=== PATIENT | male | born 1980 | race Caucasian/White ===

== ENCOUNTER → 2020-12-18 09:55 | Outpatient (BNVA) | payer BC, SELFPAY | PROVIDERS: PCP Family Medicine; Visit Provider Physician Assistant ==

== ENCOUNTER 2022-03-12 11:36 | Outpatient (REF) | payer BC, SELFPAY ==
[2022-03-12 14:26] LABS: Alanine Aminotransferase 61 U/L (0-40); Albumin Level 4.5 g/dL (3.5-5.0); Alkaline Phosphatase 59 U/L (39-117); Anion Gap 12 (12-20); Aspartate Amino Transferase 30 U/L (5-37); Bilirubin Total 0.6 mg/dL (0.0-1.0); Blood Urea Nitrogen 12 mg/dL (9-16); Calcium 9.2 mg/dL (8.4-10.2); Carbon Dioxide 26 mmol/L (22-29); Chloride 103 mmol/L (96-108); Cholesterol 220 mg/dL; Estimated Glomerular Filt Rate > 60; Glucose Fasting 119 mg/dL (60-99); HDL Cholesterol 33 mg/dL; LDL Cholesterol Calculated 151 mg/dl; Potassium 4.2 mmol/L (3.3-5.1); Sodium 137 mmol/L (135-145); Total Protein 7.4 g/dL (6.5-8.0); Triglycerides 183 mg/dL
[2022-03-12 14:27] LABS: Prostate Specific Antigen Scr 0.19 ng/mL (<0.05-4.0); TSH reflex Free T4 1.16 uIU/mL (0.32-4.0)
[2022-03-12 14:53] LABS: Creatinine Urine 189.22 mg/dL; Microalbum/Creatinine Ratio Ur 7.9 ug/mg cr
== END 2022-03-12 11:37 | disposition home or self-care (01) ==
LOC: HO.WFDLDS 11:36
PROVIDERS: Visit Provider Family Medicine
DX: Z00.00 Encounter for general adult medical examination without abnormal findings (principal); I10 Essential (primary) hypertension; Z12.5 Encounter for screening for malignant neoplasm of prostate
CPT/HCPCS: 36415; 80053; 80061; 82043; 84153; 84443

== ENCOUNTER 2023-01-21 10:51 | Outpatient (REF) | payer BC, SELFPAY ==
[2023-01-21 14:13] LABS: Alanine Aminotransferase 43 U/L (0-40); Albumin Level 4.6 g/dL (3.5-5.0); Alkaline Phosphatase 72 U/L (39-117); Anion Gap 16 (12-20); Aspartate Amino Transferase 23 U/L (5-37); Bilirubin Total 1.1 mg/dL (0.0-1.0); Blood Urea Nitrogen 14 mg/dL (9-16); Calcium 9.7 mg/dL (8.4-10.2); Carbon Dioxide 23 mmol/L (22-29); Chloride 104 mmol/L (96-108); Cholesterol 136 mg/dL; Estimated Glomerular Filt Rate > 60; Glucose Fasting 133 mg/dL (60-99); HDL Cholesterol 31 mg/dL; LDL Cholesterol Calculated 86 mg/dl; Potassium 4.3 mmol/L (3.3-5.1); Sodium 139 mmol/L (135-145); Total Protein 7.7 g/dL (6.5-8.0); Triglycerides 98 mg/dL
== END 2023-01-21 10:52 | disposition home or self-care (01) ==
LOC: HO.WFDLDS 10:51
PROVIDERS: Visit Provider Family Medicine
DX: E78.6 Lipoprotein deficiency (principal); R74.8 Abnormal levels of other serum enzymes; E78.5 Hyperlipidemia, unspecified
CPT/HCPCS: 36415; 80053; 80061

== ENCOUNTER 2023-02-25 07:57 | Outpatient (REF) | payer BC, SELFPAY ==
--- NOTE | ~2023-02-25 | US_ITS ---
EXAMINATION: US ABDOMEN LIMITED CLINICAL INFORMATION: Right lower quadrant pain; question hernia defect. COMPARISON: None available. TECHNIQUE: Real-time imaging of the right lower quadrant abdominal wall. Technically limited study secondary to bowel gas and body habitus. FINDINGS: The cutaneous, subcutaneous, muscular and fascial planes are unremarkable. No focal hernia defect is seen. There is no mass, fluid collection or lymphadenopathy. No foreign body is seen. There is hepatomegaly, with a longitudinal span of 25.5 cm. There is joint increase in hepatic echotexture. US/US abdomen limited IMPRESSION: 1. No focal abdominal wall finding is seen. No hernia defect is noted within the right lower quadrant abdominal wall. 2. There is hepatomegaly. 3. There is generalized increase in hepatic echotexture, consistent with fatty infiltration or hepatocellular disease. Please correlate clinically.
== END 2023-02-25 07:58 | disposition home or self-care (01) ==
LOC: HO.US 07:57
PROVIDERS: PCP Family Medicine; Visit Provider Family Medicine
DX: R10.9 Unspecified abdominal pain (principal)
CPT/HCPCS: 76705

== ENCOUNTER 2023-05-31 13:50 | Outpatient (REF) | payer BC, SELFPAY | END 2023-05-31 13:51 | disposition home or self-care (01) | LOC: HO.LAB 13:50 | PROVIDERS: PCP Family Medicine; Visit Provider Otolaryngology | DX: T78.1XXA Other adverse food reactions, not elsewhere classified, initial encounter (principal) | CPT/HCPCS: 36415; 82785; 86003 ==

== ENCOUNTER 2023-07-26 12:16 | Outpatient (REF) | payer BC, SELFPAY ==
[2023-07-26 15:24] LABS: Alanine Aminotransferase 59 U/L (0-40); Albumin Level 4.3 g/dL (3.5-5.0); Alkaline Phosphatase 65 U/L (39-117); Anion Gap 10 (12-20); Aspartate Amino Transferase 38 U/L (5-37); Bilirubin Total 0.8 mg/dL (0.0-1.0); Blood Urea Nitrogen 9 mg/dL (9-16); Calcium 9.2 mg/dL (8.4-10.2); Carbon Dioxide 26 mmol/L (22-29); Chloride 102 mmol/L (96-108); Cholesterol 139 mg/dL (<200); Estimated Glomerular Filt Rate > 60; Glucose Fasting 149 mg/dL (60-99); HDL Cholesterol 30 mg/dL (>40); LDL Cholesterol Calculated 86 mg/dL (<100); Potassium 3.9 mmol/L (3.3-5.1); Sodium 134 mmol/L (135-145); Total Protein 7.6 g/dL (6.5-8.0); Triglycerides 119 mg/dL (<150)
== END 2023-07-26 12:17 | disposition home or self-care (01) ==
LOC: HO.WFDLDS 12:16
PROVIDERS: Visit Provider Family Medicine
DX: Z00.00 Encounter for general adult medical examination without abnormal findings (principal); R74.8 Abnormal levels of other serum enzymes; E78.5 Hyperlipidemia, unspecified
CPT/HCPCS: 36415; 80053; 80061

== ENCOUNTER 2023-08-01 11:30 | Outpatient (AMB) | payer BC, SELFPAY ==
--- NOTE | 2023-08-01 11:33 | A.OFFPC_ITS ---
Vital Signs 08/01/23 11:34 Height 6 ft 1 in Weight 314 lb 8 oz BMI 41.5 BP 118/62 Blood Pressure Location Lt brachial Position Sitting Respiration 12 Pulse 78 Pulse Source Pulse Oximeter Pulse Oximetry (%) 97 Oxygen Delivery Method Room Air Intake Visit Reasons: f/u elevated liver enzymes, HLD, diabetes Intake Note: Patient is here to follow up on elevated liver enzymes and HLD, and his diabetes. Allergies house dust mite Allergy (Severe, Verified 08/01/23 11:40) Anaphylaxis mold Allergy (Severe, Verified 08/01/23 11:40) Anaphylaxis Seasonal Allergies Allergy (Severe, Verified 08/01/23 11:40) Anaphylaxis Tobacco use date assessed: 08/01/23 Dental Screening Dental Screen Date: 08/01/23 Did you have a dental visit in the last 12 months?: Yes Did you have a dental problem in the last 6 months where you did not have access to dental care?: No Was dental information given to patient?: Patient has dentist HPI f/u elevated liver enzymes, HLD, diabetes HPI Details 43 y/o male presents to f/u elevated fredo er enzymes, hyperlipidemia and diabetes. Labs were drawn 07/26/23. Reviewed labs with pt. Mildly low sodium at 134. AST 38 and ALT 59. Triglycerides 119. TC 139. LDL 86. HDL low at 30. He is on artovastatin 40mg. A1c today 08/01/23 8.8%. He is on metformin 850mg b.i.d. [facility] Medical History Sweating profusely GERD (gastroesophageal reflux disease) Generalized anxiety disorder Hypercholesterolemia Obesity, Class II, BMI 35-39.9 Essential hypertension Diabetes type 2, controlled Allergic rhinitis Surgical History H/O adenoidectomy H/O umbilical hernia repair No pertinent past surgical history Family History Father Diabetes Brother No problems noted. Brother No problems noted. Sister No problems noted. Sister No problems noted. Sister No problems noted. Mother No problems noted. Housing: House Alcohol intake: current Alcohol intake frequency: holidays/special occasions only Patient Tobacco Use Status: Never used Tobacco e-Cigarette/Vaping Use: Never Used Second Hand Smoke Exposure: No service: No Current occupational status: employed Current occupation: Clergy Cognitive needs: No Hearing needs: No Vision needs: No Questionnaire Thrive Questionnaire Date Thrive assessed: 01/19/22 HAIM-7 AMB Questionnaire HAIM-7 Date HAIM - 7 assessed: 01/19/22 Source: Developed by Drs. Pete Griffin, Rae Paredes, Anand Kingston and colleagues, with an educational joanie from [employer]. Review of Systems Const Denies chills, Denies fatigue, Denies fever(s), Denies headache(s) and Denies weakness ENT Denies dizziness and Denies headache(s) Card Denies chest pain, Denies lightheadedness, Denies dyspnea and Denies other (Palpitations) Resp Denies cough, Denies dyspnea, Denies wheezing and Denies other ( shortness of breath) Musc Denies numbness and Denies tingling Neuro Denies dizziness, Denies headache(s), Denies numbness, Denies tingling, Denies paresthesias and Denies weakness Psych Denies anxiety and Denies depression Endo Denies fatigue Aller/Immun Denies wheezing Physical exam (Primary Care) Vital Signs: Last Vital Signs Pulse 78 08/01/23 11:34 Resp 12 08/01/23 11:34 BP 118/62 08/01/23 11:34 Pulse Ox 97 08/01/23 11:34 Oxygen Delivery Method Room Air 08/01/23 11:34 BMI result Body Mass Index 41.5 Tobacco/Smoking Status: Tobacco use Status Tobacco use date assessed 08/01/23 08/01/23 11:40 Patient Tobacco Use Status Never used Tobacco 08/01/23 11:37 e-Cigarette/Vaping Use Never Used 08/01/23 11:37 Thrive Assessment: Date of Thrive Assessment Date Thrive assessed 01/19/22 08/01/23 11:37 Const General: no acute distress and well developed Nutritional Appearance: well nourished Orientation/consciousness: patient oriented x3 HENMT Head: Yes normocephalic and Yes atraumatic Eyes General: appearance normal, both eyes and all related structures Pupils: Equal, round and reactive pupils present EOM: EOMs intact bilaterally Resp Effort & Inspection: normal respiratory effort Auscultation: clear to auscultation bilaterally Cardio Rate: regular rate Rhythm: regular rhythm Heart sounds: S1 normal heart sound present, S2 normal heart sound present, no gallops, no murmurs and no rubs Neuro General: patient oriented x3 and gait normal Cranial nerves: Yes Equal, round and reactive pupils present Psych Affect: normal affect Results AMB Hemoglobin A1c AMB Hemoglobin A1c 8.8 % Last Edit by Natalie Albrecht CMA on 08/01/23 11:55 Results Reviewed Results Reviewed: Laboratory Last Values Hgb A1c (Clinic) 8.8 % (4.0-6.0) H 08/01/23 11:50 Assessment and Plan Assessment & Plan (1) Diabetes: Code(s): E11.9 - Type 2 diabetes mellitus without complications Plan: A1c?increased?to?8.8%;?poor?control. Goal?is?less?than?7.0% Encouraged?diabetic?diet?low?in?sugars?and?starches Continue?metformin?and?will?add?glipizide?ER?5?mg?q.a.m. (2) Elevated liver enzymes: Code(s): R74.8 - Abnormal levels of other serum enzymes Plan: Recent?abdominal?ultrasound?showed?increased?echogenicity?of?liver - likely?fatty?liver?disorder. Encouraged?weight?loss Will?continue?to?follow?liver?enzymes Can?repeat?and?check?elastography?as?well?subsequently (3) Hyperlipidemia: Code(s): E78.5 - Hyperlipidemia, unspecified Plan: HDL?is?too?low.??His?other?lipids?are?well?controlled ?on?atorvastatin?40?mg?daily Continue?atorvastatin?and?I?encouraged?exercise (4) Low HDL (under 40): Code(s): E78.6 - Lipoprotein deficiency Plan: As?above,?encouraged?exercise Orders: Orders AMB Hemoglobin A1c Today Z13.9 - Encounter for screening, unspecified Medications: New glipizide ER 5 mg PO QAM 30 days 30 tabs 2RF Coding Level of Care Code Est Pt Level 4 (80016) Diagnoses Diabetes E11.9 Elevated liver enzymes R74.8 Hyperlipidemia E78.5 Low HDL (under 40) E78.6
[2023-08-01 11:34] VITALS: BP 118/62; PULSE 78; RESP 12; O2SAT 97; BMI 41.5
== END 2023-08-01 12:15 | disposition home or self-care (01) ==
PROVIDERS: PCP Family Medicine; Visit Provider Family Medicine
DX: E11.9 Type 2 diabetes mellitus without complications (principal); R74.8 Abnormal levels of other serum enzymes; E78.5 Hyperlipidemia, unspecified; E78.6 Lipoprotein deficiency
CPT/HCPCS: 83036; 99214

== ENCOUNTER 2023-09-07 15:17 | Outpatient (AMB) | payer BC, SELFPAY ==
--- NOTE | 2023-09-07 15:26 | MHC.PC.OV ---
Vital Signs 09/07/23 15:27 Height 6 ft 1 in Weight 313 lb 6 oz BMI 41.3 BP 138/90 H Blood Pressure Location Rt brachial Position Sitting Respiration 13 Pulse 81 Pulse Source Pulse Oximeter Temp 97.4 F Temp Source Temporal Artery Scan Pulse Oximetry (%) 98 Oxygen Delivery Method Room Air Intake Visit Reasons: Cough/Yellow Phlegm/Respiratory Issues Intake Note: Patient states that his symptoms started this morning. Patient states that it feels like it felt like his ears were draining couple days prior. 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 Accompanied by: Self / Same As Patient Allergies house dust mite Allergy (Severe, Verified 09/07/23 15:43) Anaphylaxis mold Allergy (Severe, Verified 09/07/23 15:43) Anaphylaxis Seasonal Allergies Allergy (Severe, Verified 09/07/23 15:43) Anaphylaxis Medication List - Last Reconciled 09/07/23 by Benjamin Charlton CNP atorvastatin 40 mg PO BEDTIME 90 days calcium polycarbophil (FiberCon) 625 mg PO DAILY 30 days fluticasone propionate 50 mcg/actuation (Flonase Allergy Relief) 1 spray intranasal Q12H 30 days glipizide ER 5 mg PO QAM 30 days lisinopril 10 mg PO DAILY metformin 850 mg PO BID omeprazole 40 mg PO DAILY 30 days sertraline 25 mg PO DAILY Tobacco use date assessed: 08/01/23 Dental Screening Dental Screen Date: 09/07/23 Did you have a dental visit in the last 12 months?: Yes Did you have a dental problem in the last 6 months where you did not have access to dental care?: No Was dental information given to patient?: Patient has dentist HPI HPI Comments History of Present Illness Details 43-year-old male presents with complaints of fatigue, post nasal drainage, intermittent productive cough with yellow phlegm, chest congestion, and hoarse voice. His symptoms 2 days ago, worse in the morning, and has progressively worsen. No headache, sore throat, shortness of breath, wheezing, fever, chills, body aches, or weakness. He had a negative home COVID-19 test yesterday. He denies sick contact. He notes he has been taking mucinex with some relief. He admits to adequate hydration. [facility] Medical History Sweating profusely GERD (gastroesophageal reflux disease) Generalized anxiety disorder Hypercholesterolemia Obesity, Class II, BMI 35-39.9 Essential hypertension Diabetes type 2, controlled Allergic rhinitis Surgical History H/O adenoidectomy H/O umbilical hernia repair No pertinent past surgical history Family History Father Diabetes Brother No problems noted. Brother No problems noted. Sister No problems noted. Sister No problems noted. Sister No problems noted. Mother No problems noted. Social History Housing: House Alcohol intake: current Alcohol intake frequency: holidays/special occasions only Patient Tobacco Use Status: Never used Tobacco e-Cigarette/Vaping Use: Never Used Second Hand Smoke Exposure: No service: No Current occupational status: employed Current occupation: Clergy Cognitive needs: No Hearing needs: No Vision needs: No Questionnaire Thrive Questionnaire Date Thrive assessed: 01/19/22 HAIM-7 AMB Questionnaire HAIM-7 Date HAIM - 7 assessed: 01/19/22 Source: Developed by Drs. Pete Griffin, Rae Paredes, Anand Kingston and colleagues, with an educational joanie from [employer]. Review of Systems Const Details: Const Denies chills, Reports fatigue, Denies fever(s), Denies headache(s) and Denies weakness ENT Reports as per HPI Card Denies chest pain, Denies lightheadedness, Denies dyspnea and Denies other (Palpitations) Resp Reports cough, Denies dyspnea, Denies wheezing and Denies other ( shortness of breath) GI Denies abdominal pain, Denies melena, Denies hematochezia, Denies change in bowel habits, Denies dyspepsia and Denies nausea Denies hematuria and Denies dysuria Musc Denies abnormal gait, Denies myalgias, Denies arthralgias, Denies numbness and Denies tingling Skin/Breast Denies rash, Denies unusual bruising and Denies wounds Neuro Denies abnormal gait, Denies dizziness, Denies headache(s), Denies memory loss, Denies numbness, Denies Sensory deficit (Neuro), Denies tingling and Denies weakness Psych Denies anxiety, Denies depression, Denies memory loss Endo Denies cold intolerance, Reports fatigue, Denies heat intolerance, Denies polydipsia and Denies polyuria Aller/Immun Denies wheezing Physical exam (Primary Care) Vital Signs: Last Vital Signs Temp 97.4 F 09/07/23 15:27 Pulse 81 09/07/23 15:27 Resp 13 09/07/23 15:27 BP 138/90 H 09/07/23 15:27 Pulse Ox 98 09/07/23 15:27 Oxygen Delivery Method Room Air 09/07/23 15:27 BMI result Body Mass Index 41.3 Tobacco/Smoking Status: Tobacco use Status Tobacco use date assessed 08/01/23 09/07/23 15:34 Patient Tobacco Use Status Never used Tobacco 09/07/23 15:34 e-Cigarette/Vaping Use Never Used 09/07/23 15:34 Thrive Assessment: Date of Thrive Assessment Date Thrive assessed 01/19/22 09/07/23 15:34 Const Other: General: no acute distress and well developed Nutritional Appearance: well nourished Orientation/consciousness: patient oriented x3 HENMT Head is normocephalic Bilateral ear canal and TM are normal Nasal turbinates and oropharynx are pink and moist Sinuses are nontender with palpation No auricular or cervical lymphadenopathy Eyes General: appearance normal, both eyes and all related structures Pupils: Equal, round and reactive pupils present EOM: EOMs intact bilaterally Resp Effort & Inspection: normal respiratory effort Auscultation: clear to auscultation bilaterally Cardio Rate: regular rate Rhythm: regular rhythm Heart sounds: S1 normal heart sound present, S2 normal heart sound present, no gallops, no murmurs and no rubs GI Palpation (GI): No Abdominal aortic bruit present, Soft to palpation, nontender, No hepatosplenomegaly present and No Rebound tenderness present Auscultation: normal bowel sounds General: Yes no CVA tenderness Back/Spine/Pelvis Back: no CVA tenderness Cervical Spine: cervical ROM normal and No Cervical spine tenderness Thoracic/Lumbar Spine: thoraco-lumbar ROM normal, No pain with thoraco-lumbar ROM, No thoracic spinal tenderness and No lumbar spinal tenderness Extrem General: Yes normal to inspection, No edema and No calf tenderness Skin General: warm and dry. Normal skin color. Normal skin turgor Neuro General: patient oriented x3, gait normal and no focal neuro deficit Cranial nerves: Yes Equal, round and reactive pupils present Cognition (Neuro): normal cognition Gait exam (Neuro): Normal gait present Sensory Exam: No Sensory deficit (Neuro) Psych Appearance: grossly normal Affect: normal affect Attitude: cooperative Thought process: Normal thought process present Assessment and Plan Assessment & Plan (1) Viral upper respiratory illness: Code(s): J06.9 - Acute upper respiratory infection, unspecified Plan: Likely viral illness though possibly allergies. No exam evidence of bacterial infection Viral illness There is no antibiotic medication for viruses.? They must run their course.? Most average 5-7 days but 7-10 days is not uncommon and up to 14 days is still possible.? A cough is often the last symptom to resolve and this can last for weeks in some cases. Rest Hydrate well - Drink plenty of fluids.? Especially water. Tylenol or ibuprofen for muscle aches, headache, fever/discomfort Cannot rule out COVID-19/RSV/Flu infection Nasal swab acquired and will be sent to the lab Return for new or worsening symptoms Verbalized understanding and agreed with treatment plan. Orders: Orders SARS-CoV2/FLU/RSV Today J06.9 - Acute upper respiratory infection, unspecified Coding Level of Care Code Est Pt Level 2 (23181) Diagnoses Viral upper respiratory illness J06.9
[2023-09-07 15:27] VITALS: BP 138/90; PULSE 81; RESP 13; TEMP 36.3; O2SAT 98; BMI 41.3
== END 2023-09-07 16:01 | disposition home or self-care (01) ==
PROVIDERS: PCP Family Medicine; Visit Provider Nurse Practitioner Family
DX: J06.9 Acute upper respiratory infection, unspecified (principal)
CPT/HCPCS: 99212

== ENCOUNTER 2023-09-07 16:04 | Outpatient (REF) | payer BC, SELFPAY | END 2023-09-07 16:05 | disposition home or self-care (01) | LOC: HO.LAB 16:04 | PROVIDERS: Visit Provider Nurse Practitioner Family | DX: Z11.52 Encounter for screening for COVID-19 (principal); J06.9 Acute upper respiratory infection, unspecified | CPT/HCPCS: 0241U ==

== ENCOUNTER 2023-09-29 09:45 | Outpatient (AMB) | payer BC, SELFPAY ==
--- NOTE | 2023-09-29 08:21 | MHC.PC.OV ---
Vital Signs 09/29/23 10:02 Height 6 ft 1 in Weight 306 lb BMI 40.4 BP 126/80 Blood Pressure Location Lt brachial Position Sitting Pulse 84 Pulse Source Pulse Oximeter Pulse Oximetry (%) 98 Intake Visit Reasons: f/u diabetes Intake Note: Patient is here to follow up on his diabetes. Patient is requesting refill of Lisinopril for 90 day supply. Allergies house dust mite Allergy (Severe, Verified 09/29/23 10:04) Anaphylaxis mold Allergy (Severe, Verified 09/29/23 10:04) Anaphylaxis Seasonal Allergies Allergy (Severe, Verified 09/29/23 10:04) Anaphylaxis Tobacco use date assessed: 09/29/23 Dental Screening Dental Screen Date: 09/29/23 Did you have a dental visit in the last 12 months?: Yes Did you have a dental problem in the last 6 months where you did not have access to dental care?: No Was dental information given to patient?: Patient has dentist HPI f/u diabetes HPI Details Patient?returns?to?follow-up?diabetes?and?hypertension. His?A1c?was?8.8%?at?last?check.??We?continued?his?metformin?and?added?some?glipizide He?has?been?working?on?a?diabetic?diet?and?weight?loss.??He?is?walking?a?little?bit?more. He?has?lost?about?8-10?lb. A1c?now?6.9% Blood?pressures?have?been?well?controlled?and?are?well?controlled?today.??It?was?a?little?elevated?at?his?last?visit?but?he?was?sick?that?day. Feeling?well?today.??No?new?complaints [facility] Medical History Sweating profusely GERD (gastroesophageal reflux disease) Generalized anxiety disorder Hypercholesterolemia Obesity, Class II, BMI 35-39.9 Essential hypertension Diabetes type 2, controlled Allergic rhinitis Surgical History H/O adenoidectomy H/O umbilical hernia repair No pertinent past surgical history Family History Father Diabetes Brother No problems noted. Brother No problems noted. Sister No problems noted. Sister No problems noted. Sister No problems noted. Mother No problems noted. Social History Housing: House Alcohol intake: current Alcohol intake frequency: holidays/special occasions only Patient Tobacco Use Status: Never used Tobacco e-Cigarette/Vaping Use: Never Used Second Hand Smoke Exposure: No service: No Current occupational status: employed Current occupation: Clergy Cognitive needs: No Hearing needs: No Vision needs: No Questionnaire PHQ-9 Over the last 2 weeks, how often have you been bothered by any of the following problems? 1. Little interest or pleasure in doing things: not at all 2. Feeling down, depressed, or hopeless: not at all 3. Trouble falling or staying asleep, or sleeping too much: not at all 4. Feeling tired or having little energy: not at all 5. Poor appetite or overeating: not at all 6. Feeling bad about yourself - or that you are a failure or have let yourself or your family down: not at all 7. Trouble concentrating on things, such as reading the newspaper or watching television: not at all 8. Moving or speaking so slowly that other people could have noticed. Or the opposite - being so fidgety or restless that you have been moving around a lot more than usual: not at all 9. Thoughts that you would be better off or of hurting yourself in some way: not at all Total score: 0 Source: Developed by Drs. Pete Griffin, Rae Paredes, Anand Kingston and colleagues, with an educational joanie from [employer]. Thrive Questionnaire Date Thrive assessed: 09/29/23 I am a: Patient What is your living situation today?: I have a steady place to live Within the past 12 months, did the food you bought not last and you didn't have the money to get more?: Never true Within the past 12 months, did you worry whether your food would run out before you got money to buy more?: Never true Do you have trouble paying for medicines?: No Do you have trouble getting transportation to medical appointments?: No Do you have trouble paying your heating and electricity bill?: No Do you have trouble taking care of your child, family member or friend?: No Do you have trouble with day-to-day activities such as bathing, preparing meals, shopping, managing finances, etc.?: No Are you currently unemployed and looking for a job?: No Are you interested in more education?: No THRIVE Score: 0 AUDIT C Alcohol Use Questionnaire (AUDIT-C) 1. How often do you have a drink containing alcohol?: Never 3. How often do you have six or more drinks on one occasion?: Never Total Score: 0 HAIM-7 AMB Questionnaire HAIM-7 Date HAIM - 7 assessed: 09/29/23 Feeling nervous, anxious, or on edge: 3 = Nearly every day Not being able to stop or control worryin = Several days Worrying too much about different things: 1 = Several days Trouble relaxin = Several days Being so restless that it is hard to sit still: 0 = Not at all Becoming easily annoyed or irritable: 1 = Several days Feeling afraid as if something awful might happen: 0 = Not at all Total HAIM-7 score (0-4 normal; 5-9 mild; 10-14 moderate; 15-21 severe): 7 Source: Developed by Drs. Pete Griffin, Rae Paredes, Anand Kingston and colleagues, with an educational joanie from [employer]. Review of Systems Const Denies chills, Denies fatigue, Denies fever(s), Denies headache(s) and Denies weakness ENT Denies dizziness and Denies headache(s) Card Denies chest pain, Denies lightheadedness, Denies dyspnea and Denies other (Palpitations) Resp Denies cough, Denies dyspnea, Denies wheezing and Denies other ( shortness of breath) Musc Denies numbness and Denies tingling Neuro Denies dizziness, Denies headache(s), Denies numbness, Denies tingling, Denies paresthesias and Denies weakness Psych Denies anxiety and Denies depression Endo Denies fatigue Aller/Immun Denies wheezing Physical exam (Primary Care) BMI result Body Mass Index 40.4 Tobacco/Smoking Status: Tobacco use Status Tobacco use date assessed 08/01/23 09/29/23 08:22 Patient Tobacco Use Status Never used Tobacco 09/29/23 08:22 e-Cigarette/Vaping Use Never Used 09/29/23 08:22 Thrive Assessment: Date of Thrive Assessment Date Thrive assessed 01/19/22 09/29/23 08:22 Const General: no acute distress and well developed Nutritional Appearance: well nourished Orientation/consciousness: patient oriented x3 HENMT Head: Yes normocephalic and Yes atraumatic Eyes General: appearance normal, both eyes and all related structures Pupils: Equal, round and reactive pupils present EOM: EOMs intact bilaterally Resp Effort & Inspection: normal respiratory effort Auscultation: clear to auscultation bilaterally Cardio Rate: regular rate Rhythm: regular rhythm Heart sounds: S1 normal heart sound present, S2 normal heart sound present, no gallops, no murmurs and no rubs Neuro General: patient oriented x3 and gait normal Cranial nerves: Yes Equal, round and reactive pupils present Psych Affect: normal affect Results AMB Hemoglobin A1c AMB Hemoglobin A1c 6.9 % Last Edit by Natalie Albrecht CMA on 09/29/23 10:23 Assessment and Plan Assessment & Plan (1) Diabetes: Code(s): E11.9 - Type 2 diabetes mellitus without complications Plan: A1c?now 6.9% after?adding?glipizide?ER?5?mg?daily?and?continuing?metformin?850?mg?b.i.d. Continue?current?medication?regimen Continue?diabetic?diet?and?exercise?and?weight?loss. Up-to-date?with?diabetic?eye?exam,?09/21/2023;?no?diabetic?retinopathy. (2) Morbid obesity with BMI of 40.0-44.9, adult: Code(s): E66.01 - Morbid (severe) obesity due to excess calories; Z68.41 - Body mass index [BMI] 40.0-44.9, adult Plan: Patient?has?lost?about?a?lb?since?July.??Congratulated?patient?and?encouraged?him?to?continue Imaging?has?shown?incidental?fatty?liver?and?he?has?had?elevated?liver?enzymes. We?can?check?these?again?prior?to?his?next?visit?as?well?as?his?lipids Orders: Orders Comprehensive [place]. Panel Fast Today R74.8 - Abnormal levels of other serum enzymes, Z00.00 - Encounter for general adult medical examination without abnormal findings Lipid Panel Today E78.5 - Hyperlipidemia, unspecified, Z00.00 - Encounter for general adult medical examination without abnormal findings Microalbumin, Random (w Creat) Today E11.9 - Type 2 diabetes mellitus without complications, I10 - Essential (primary) hypertension AMB Hemoglobin A1c Today Z13.9 - Encounter for screening, unspecified Medications: Changed From lisinopril 10 mg PO DAILY 30 tabs 0RF To lisinopril 10 mg PO DAILY 90 days 90 tabs 3RF Coding Level of Care Code Est Pt Level 3 (87118) Diagnoses Diabetes E11.9 Morbid obesity with BMI of 40.0-44.9, adult E66.01; Z68.41
[2023-09-29 10:02] VITALS: BP 126/80; PULSE 84; O2SAT 98; BMI 40.4
== END 2023-09-29 10:31 | disposition home or self-care (01) ==
PROVIDERS: PCP Family Medicine; Visit Provider Family Medicine
DX: E11.9 Type 2 diabetes mellitus without complications (principal); E66.01 Morbid (severe) obesity due to excess calories; Z68.41 Body mass index [BMI] 40.0-44.9, adult
CPT/HCPCS: 83036; 99213

== ENCOUNTER 2024-05-04 09:32 | Outpatient (REF) | payer BC, SELFPAY ==
[2024-05-04 12:10] LABS: Alanine Aminotransferase 34 U/L (0-40); Albumin Level 4.3 g/dL (3.5-5.0); Alkaline Phosphatase 63 U/L (39-117); Anion Gap 7 (12-20); Aspartate Amino Transferase 18 U/L (5-37); Bilirubin Total 0.6 mg/dL (0.0-1.0); Blood Urea Nitrogen 12 mg/dL (9-16); Calcium 9.5 mg/dL (8.4-10.2); Carbon Dioxide 28 mmol/L (22-29); Chloride 104 mmol/L (96-108); Cholesterol 116 mg/dL (<200); Estimated Glomerular Filt Rate > 60; Glucose Fasting 128 mg/dL (60-99); HDL Cholesterol 30 mg/dL (>40); LDL Cholesterol Calculated 70 mg/dL (<100); Potassium 4.2 mmol/L (3.3-5.1); Sodium 135 mmol/L (135-145); Total Protein 7.4 g/dL (6.5-8.0); Triglycerides 81 mg/dL (<150)
[2024-05-04 12:18] LABS: Creatinine Urine 161.18 mg/dL; Microalbum/Creatinine Ratio Ur 6.2 ug/mg cr (<30)
== END 2024-05-04 09:33 | disposition home or self-care (01) ==
LOC: HO.WFDLDS 09:32
PROVIDERS: Visit Provider Family Medicine
DX: Z00.00 Encounter for general adult medical examination without abnormal findings (principal); R74.8 Abnormal levels of other serum enzymes; E78.5 Hyperlipidemia, unspecified; I10 Essential (primary) hypertension; E11.9 Type 2 diabetes mellitus without complications
CPT/HCPCS: 36415; 80053; 80061; 82043; 82570

== ENCOUNTER 2024-05-09 11:37 | Outpatient (AMB) | payer BC, SELFPAY ==
--- NOTE | 2024-05-09 11:51 | A.OFFPC_ITS ---
Vital Signs 05/09/24 11:55 Height 6 ft 2 in Weight 311 lb BMI 39.9 BP 110/80 Blood Pressure Location Rt brachial Position Sitting Respiration 12 Pulse 83 Pulse Source Pulse Oximeter Temp 97.1 F Temp Source Tympanic Pulse Oximetry (%) 98 Oxygen Delivery Method Room Air Intake Visit Reasons: Diabetes follow up Intake Note: f/u for DM Allergies house dust mite Allergy (Severe, Verified 05/09/24 11:54) Anaphylaxis mold Allergy (Severe, Verified 05/09/24 11:54) Anaphylaxis Seasonal Allergies Allergy (Severe, Verified 05/09/24 11:54) Anaphylaxis Medication List - Last Reconciled 05/09/24 by Raphael Ward MD atorvastatin 40 mg PO BEDTIME 90 days calcium polycarbophil (FiberCon) 625 mg PO DAILY 30 days fluticasone propionate 50 mcg/actuation (Flonase Allergy Relief) 1 spray intranasal Q12H 30 days glipizide ER 5 mg PO QAM 30 days lisinopril 10 mg PO DAILY 90 days metformin 850 mg PO BID omeprazole 40 mg PO DAILY 30 days sertraline 25 mg PO DAILY Tobacco use date assessed: 09/29/23 Dental Screening Dental Screen Date: 09/29/23 HPI Diabetes follow up HPI Details 43 y/o male presents to f/u diabetes, hy pertension. Last A1c 6.9%. A1c today 05/09/24 is 6.4%. He is on metformin 850mg b.i.d, glipizide 5mg. Blood pressure today 110/80, 83p. He is on lisinopril 10mg daily. He notes he continues to watch his diet and has been walking more often. He has gained a little bit of weight since last office visit. HPI Comments History of Present Illness Details Documentation assistance for Raphael Ward MD, was provided by Quang Adamson,? Track Sweeper on 05/09/2024 at 12:27 PM EST. I, Dr. Ward, have read, observed, and verified documentation. [facility] Medical History (Reviewed 09/29/23 @ 10:06 by Natalie Albrecht, [facility]) Sweating profusely GERD (gastroesophageal reflux disease) Generalized anxiety disorder Hypercholesterolemia Obesity, Class II, BMI 35-39.9 Essential hypertension Diabetes type 2, controlled Allergic rhinitis Surgical History H/O adenoidectomy H/O umbilical hernia repair No pertinent past surgical history Family History Father Diabetes Brother No problems noted. Brother No problems noted. Sister No problems noted. Sister No problems noted. Sister No problems noted. Mother No problems noted. Social History Housing: House Alcohol intake: current Alcohol intake frequency: holidays/special occasions only Patient Tobacco Use Status: Never used Tobacco e-Cigarette/Vaping Use: Never Used Second Hand Smoke Exposure: No service: No Current occupational status: employed Current occupation: Clergy Cognitive needs: No Hearing needs: No Vision needs: No Questionnaire Thrive Questionnaire Date Thrive assessed: 09/29/23 HAIM-7 AMB Questionnaire HAIM-7 Date HAIM - 7 assessed: 09/29/23 Source: Developed by Drs. Pete Griffin, Rae Paredes, Anand Kingston and colleagues, with an educational joanie from [employer]. Review of Systems Const Denies chills, Denies fatigue, Denies fever(s), Denies headache(s) and Denies weakness ENT Denies dizziness and Denies headache(s) Card Denies dyspnea Resp Denies cough, Denies dyspnea, Denies wheezing and Denies other (shortness of breath) Musc Denies numbness and Denies tingling Neuro Denies dizziness, Denies headache(s), Denies numbness, Denies tingling and Denies weakness Psych Denies anxiety and Denies depression Endo Denies fatigue Aller/Immun Denies wheezing Physical exam (Primary Care) Vital Signs: Last Vital Signs Temp 97.1 F 05/09/24 11:55 Pulse 83 05/09/24 11:55 Resp 12 05/09/24 11:55 BP 110/80 05/09/24 11:55 Pulse Ox 98 05/09/24 11:55 Oxygen Delivery Method Room Air 05/09/24 11:55 BMI result Body Mass Index 39.9 Tobacco/Smoking Status: Tobacco use Status Tobacco use date assessed 09/29/23 05/09/24 11:51 Patient Tobacco Use Status Never used Tobacco 05/09/24 11:51 e-Cigarette/Vaping Use Never Used 05/09/24 11:51 Thrive Assessment: Date of Thrive Assessment Date Thrive assessed 09/29/23 05/09/24 11:51 Const General: well developed; No acute distress Nutritional Appearance: well nourished and obese Orientation/consciousness: patient oriented x3 [facility] Head: Yes normocephalic and Yes atraumatic Eyes General: appearance normal, both eyes and all related structures Pupils: Equal, round and reactive pupils present EOM: EOMs intact bilaterally Resp Effort & Inspection: normal respiratory effort Auscultation: clear to auscultation bilaterally Cardio Rate: regular rate Rhythm: regular rhythm Heart sounds: S1 normal heart sound present, S2 normal heart sound present, no gallops, no murmurs and no rubs Neuro General: patient oriented x3 and gait normal Cranial nerves: Yes Equal, round and reactive pupils present Psych Affect: normal affect Assessment and Plan Assessment & Plan (1) Diabetes: Code(s): E11.9 - Type 2 diabetes mellitus without complications Plan: A1c?shows?good?control?at?6.4%.??Goal?is?less?than?7.0% Continue?current?medication?regimen Encouraged?diabetic?diet He?did?gain?back?some?weight?and ?I?encouraged?him?to?work?on?this.??He?still?has?a?goal?of?trying?to?get?himself ?off?of?his?diabetic?medications?and?this?will?take?significant?weight?loss?and? exercise?along?with?a?good?diabetic?diet. (2) Essential hypertension: Code(s): I10 - Essential (primary) hypertension Plan: Blood?pressure?is?well?controlled.??Goal?is?less?than?140/90 Continue?current?medication?regimen Orders: Orders Comprehensive [place]. Panel Fast 4 Months Z00.00 - Encounter for general adult medical examination without abnormal findings Prostate Specific Antigen Scr 4 Months Z12.5 - Encounter for screening for malignant neoplasm of prostate TSH reflex Free T4 4 Months Z00.00 - Encounter for general adult medical examination without abnormal findings Vitamin B12 and Folate 4 Months E53.8 - Deficiency of other specified B group vitamins Lipid Panel 4 Months Z00.00 - Encounter for general adult medical examination without abnormal findings Microalbumin, Random (w Creat) 4 Months I10 - Essential (primary) hypertension UA and rflx microscopic 4 Months Z00.00 - Encounter for general adult medical examination without abnormal findings Coding Level of Care Code Est Pt Level 3 (20616) Diagnoses Diabetes E11.9 Essential hypertension I10
[2024-05-09 11:55] VITALS: BP 110/80; PULSE 83; RESP 12; TEMP 36.2; O2SAT 98; BMI 39.9
== END 2024-05-09 12:38 | disposition home or self-care (01) ==
PROVIDERS: PCP Family Medicine; Visit Provider Family Medicine
DX: E11.9 Type 2 diabetes mellitus without complications (principal); I10 Essential (primary) hypertension
CPT/HCPCS: 99213

== ENCOUNTER 2024-11-27 09:44 | Outpatient (REF) | payer BC, SELFPAY ==
[2024-11-27 11:26] LABS: Appearance Urine Clear; Color Urine Yellow; Glucose Urine UA Negative (Negative); Leukocyte Esterase Urine Negative (Negative); Nitrite Urine Negative (Negative); PH 5.5 (5.0-9.0); Urine Blood Negative (Negative); Urine Ketones Negative (Negative); Urine Protein Negative (Neg-Trace)
[2024-11-27 12:07] LABS: Creatinine Urine 147.83 mg/dL; Microalbum/Creatinine Ratio Ur 7.4 ug/mg cr (<30)
[2024-11-27 12:26] LABS: Folate 6.8 ng/mL (> or = 4.0); Prostate Specific Antigen Scr 0.17 ng/mL (<0.05-4.0); Vitamin B12 330 pg/mL (200-900)
[2024-11-27 12:33] LABS: Alanine Aminotransferase 58 U/L (0-40); Albumin Level 4.4 g/dL (3.5-5.0); Alkaline Phosphatase 60 U/L (39-117); Anion Gap 11 (12-20); Aspartate Amino Transferase 35 U/L (5-37); Bilirubin Total 0.9 mg/dL (0.0-1.0); Blood Urea Nitrogen 13 mg/dL (9-16); Calcium 9.4 mg/dL (8.4-10.2); Carbon Dioxide 25 mmol/L (22-29); Chloride 107 mmol/L (96-108); Cholesterol 116 mg/dL (<200); Estimated Glomerular Filt Rate > 60; Glucose Fasting 126 mg/dL (60-99); HDL Cholesterol 32 mg/dL (>40); LDL Cholesterol Calculated 63 mg/dL (<100); Potassium 4.5 mmol/L (3.3-5.1); Sodium 138 mmol/L (135-145); TSH reflex Free T4 1.67 uIU/mL (0.32-4.0); Total Protein 7.4 g/dL (6.5-8.0); Triglycerides 108 mg/dL (<150)
== END 2024-11-27 09:45 | disposition home or self-care (01) ==
LOC: HO.WFDLDS 09:44
PROVIDERS: Visit Provider Family Medicine
DX: Z00.00 Encounter for general adult medical examination without abnormal findings (principal); I10 Essential (primary) hypertension; Z12.5 Encounter for screening for malignant neoplasm of prostate; E53.8 Deficiency of other specified B group vitamins
CPT/HCPCS: 36415; 80053; 80061; 81003; 82043; 82570; 82607; 82746; 84153; 84443

== ENCOUNTER 2024-11-29 15:51 | Outpatient (AMB) | payer BC, SELFPAY ==
--- NOTE | 2024-11-29 16:19 | A.OFFPC_ITS ---
Vital Signs 11/29/24 16:22 Height 6 ft 2 in Weight 311 lb 4 oz BMI 40.0 BP 120/70 Blood Pressure Location Lt brachial Position Sitting Respiration 14 Pulse 79 Pulse Source Pulse Oximeter Temp 99.9 F Temp Source Oral Pulse Oximetry (%) 97 Oxygen Delivery Method Room Air Intake Visit Reasons: cpe fu labs Intake Note: Patient is schedule for CPE refill for atorvastatin Seismic Survey Assistant Required: No Allergies house dust mite Allergy (Severe, Verified 11/29/24 16:20) Anaphylaxis mold Allergy (Severe, Verified 11/29/24 16:20) Anaphylaxis Seasonal Allergies Allergy (Severe, Verified 11/29/24 16:20) Anaphylaxis Medication List - Last Reconciled 11/29/24 by Raphael Ward MD atorvastatin 40 mg PO BEDTIME 90 days calcium polycarbophil (FiberCon) 625 mg PO DAILY 30 days fluticasone propionate 50 mcg/actuation (Flonase Allergy Relief) 1 spray intranasal Q12H 30 days glipizide ER 5 mg PO QAM 30 days lisinopril 10 mg PO DAILY 90 days metformin 850 mg PO BID omeprazole 40 mg PO DAILY 30 days sertraline 25 mg PO DAILY Tobacco use date assessed: 11/29/24 Dental Screening Dental Screen Date: 11/29/24 Did you have a dental visit in the last 12 months?: Yes Did you have a dental problem in the last 6 months where you did not have access to dental care?: No Was dental information given to patient?: Yes HPI cpe fu labs HPI Details 44 y/o male presents for a CPE with f/u labs and health maintenance. Labs drawn 11/27/24. Reviewed labs with pt. Fasting glucose 126. A1c 6.2%. He is on meformin 850mg b.i.d, glipizide 5mg. Elevated ALT of 58. Triglycerides 108. TC 116. LDL 63. HDL low at 32. He is on artovastatin 40mg. Pt notes he has been trying to increase his exercise. [facility] Medical History Sweating profusely GERD (gastroesophageal reflux disease) Generalized anxiety disorder Hypercholesterolemia Obesity, Class II, BMI 35-39.9 Essential hypertension Diabetes type 2, controlled Allergic rhinitis Surgical History H/O adenoidectomy H/O umbilical hernia repair No pertinent past surgical history Family History Father Diabetes Brother No problems noted. Brother No problems noted. Sister No problems noted. Sister No problems noted. Sister No problems noted. Mother No problems noted. Social History Housing: House Alcohol intake: current Alcohol intake frequency: holidays/special occasions only Patient Tobacco Use Status: Never used Tobacco e-Cigarette/Vaping Use: Never Used Second Hand Smoke Exposure: No service: No Current occupational status: employed Current occupation: Clergy Cognitive needs: No Hearing needs: No Vision needs: No Questionnaire PHQ-9 Over the last 2 weeks, how often have you been bothered by any of the following problems? 1. Little interest or pleasure in doing things: not at all 2. Feeling down, depressed, or hopeless: not at all 3. Trouble falling or staying asleep, or sleeping too much: not at all 4. Feeling tired or having little energy: not at all 5. Poor appetite or overeating: not at all 6. Feeling bad about yourself - or that you are a failure or have let yourself or your family down: not at all 7. Trouble concentrating on things, such as reading the newspaper or watching television: not at all 8. Moving or speaking so slowly that other people could have noticed. Or the opposite - being so fidgety or restless that you have been moving around a lot more than usual: not at all 9. Thoughts that you would be better off or of hurting yourself in some way: not at all Total score: 0 Depression Screening Interpretation: Negative Depression Screening Done: Yes 25114 - PHQ-9 Billing: Yes Source: Developed by Drs. Pete Griffin, Rae Paredes, Anand Kingston and colleagues, with an educational joanie from [employer]. Thrive Questionnaire Date Thrive assessed: 11/29/24 I am a: Patient What is your living situation today?: I have a steady place to live Within the past 12 months, did the food you bought not last and you didn't have the money to get more?: Never true Within the past 12 months, did you worry whether your food would run out before you got money to buy more?: Never true Do you have trouble paying for medicines?: No Do you have trouble getting transportation to medical appointments?: No Do you have trouble paying your heating and electricity bill?: No Do you have trouble taking care of your child, family member or friend?: No Do you have trouble with day-to-day activities such as bathing, preparing meals, shopping, managing finances, etc.?: No Are you currently unemployed and looking for a job?: No Are you interested in more education?: No Please select the resources that you would like help with: None Currently or been in a relationship where the following occur: No concerns reported THRIVE Score: 0 AUDIT C Alcohol Use Questionnaire (AUDIT-C) 1. How often do you have a drink containing alcohol?: Monthly or less 2. How many drinks containing alcohol do you have on a typical day when you are drinking?: 1 or 2 3. How often do you have six or more drinks on one occasion?: Never Total Score: 1 HAIM-7 AMB Questionnaire HAIM-7 Date HAIM - 7 assessed: 11/29/24 Feeling nervous, anxious, or on edge: 0 = Not at all Not being able to stop or control worryin = Not at all Worrying too much about different things: 0 = Not at all Trouble relaxin = Not at all Being so restless that it is hard to sit still: 0 = Not at all Becoming easily annoyed or irritable: 0 = Not at all Feeling afraid as if something awful might happen: 0 = Not at all Total HAIM-7 score (0-4 normal; 5-9 mild; 10-14 moderate; 15-21 severe): 0 Source: Developed by Drs. Pete Griffin, Rae Paredes, Anand Kingston and colleagues, with an educational joanie from [employer]. HAIM-7 Assessment Billing HAIM-7 Assessment Tool: HAIM-7 Assessment 21947 Review of Systems Const Denies chills, Denies fatigue, Denies fever(s), Denies headache(s) and Denies weakness Eyes Denies change in vision ENT Denies dizziness, Denies headache(s), Denies hearing loss, Denies nasal congestion, Denies sinus pain, Denies sinus pressure and Denies sore throat Card Denies chest pain, Denies lightheadedness, Denies dyspnea and Denies other (palpitations) Resp Denies cough, Denies dyspnea and Denies wheezing GI Denies abdominal pain, Denies melena, Denies hematochezia, Denies change in bowel habits, Denies dyspepsia and Denies nausea Denies hematuria and Denies dysuria Musc Denies abnormal gait, Denies myalgias, Denies arthralgias, Denies numbness and Denies tingling Skin/Breast Denies rash, Denies unusual bruising and Denies wounds Neuro Denies abnormal gait, Denies dizziness, Denies headache(s), Denies memory loss, Denies numbness, Denies Sensory deficit (Neuro), Denies tingling and Denies weakness Psych Denies anxiety, Denies depression and Denies memory loss Endo Denies cold intolerance, Denies fatigue, Denies heat intolerance, Denies polydipsia and Denies polyuria Levy/Lymph Denies easy bleeding and Denies easy bruising Aller/Immun Denies wheezing Physical exam (Primary Care) Vital Signs: Last Vital Signs Temp 99.9 F 11/29/24 16:22 Pulse 79 11/29/24 16:22 Resp 14 11/29/24 16:22 BP 120/70 11/29/24 16:22 Pulse Ox 97 11/29/24 16:22 Oxygen Delivery Method Room Air 11/29/24 16:22 BMI result Body Mass Index 40.0 Tobacco/Smoking Status: Tobacco use Status Tobacco use date assessed 11/29/24 11/29/24 16:25 Patient Tobacco Use Status Never used Tobacco 11/29/24 16:25 e-Cigarette/Vaping Use Never Used 11/29/24 16:25 PHQ-9: PHQ-9 Score PHQ-9: Total score 0 11/29/24 16:49 Depression Screening Interpretation: Negative Thrive Assessment: Date of Thrive Assessment Date Thrive assessed 11/29/24 11/29/24 16:25 Currently or been in a relationship where the following occur: No concerns reported Const General: no acute distress, well developed, alert and awake Nutritional Appearance: obese morbidly obese Orientation/consciousness: patient oriented x3 [facility] Head: Yes normocephalic and Yes atraumatic Ears: hearing grossly normal bilaterally and TM's normal bilaterally General nose exam: Normal external nose present and Normal nares present Mouth: Normal oral and palatal mucosa present and moist mucous membranes Teeth and gingiva: dentition normal Throat: Yes posterior oropharynx normal Eyes General: appearance normal, both eyes and all related structures Pupils: Equal, round and reactive pupils present and Pupil accommodation reflex normal EOM: EOMs intact bilaterally Neck Neck: Yes normal visual inspection, Yes no lymphadenopathy and Yes trachea midline Thyroid: Thyroid normal Carotids: no bruits Lymphatic: no lymphadenopathy noted Chest Chest palpation & inspection: normal inspection of the chest Resp Effort & Inspection: normal respiratory effort Auscultation: clear to auscultation bilaterally Cardio Rate: regular rate Rhythm: regular rhythm Heart sounds: S1 normal heart sound present, S2 normal heart sound present, no gallops, no murmurs and no rubs Bruits: no abdominal aortic bruits and no carotid bruits GI Palpation (GI): No Abdominal aortic bruit present, Soft to palpation, nontender, No hepatosplenomegaly present and No Rebound tenderness present Auscultation: normal bowel sounds General: Yes no CVA tenderness Back/Spine/Pelvis Back: no CVA tenderness Cervical Spine: cervical ROM normal and No Cervical spine tenderness Thoracic/Lumbar Spine: thoraco-lumbar ROM normal, No pain with thoraco-lumbar ROM, No thoracic spinal tenderness and No lumbar spinal tenderness Skin Lesions: no lesions Rashes: no rashes Trauma: no lacerations or abrasions Wounds: no wounds Nails: normal Neuro General: patient oriented x3 Cranial nerves: Yes Equal, round and reactive pupils present Cognition (Neuro): normal cognition Gait exam (Neuro): Normal gait present Motor exam (neuro): 5/5 motor strength present throughout Sensory Exam: No Sensory deficit (Neuro) Deep tendon reflexes (DTR's): Right patellar reflex intensity grade: 2+ and Left patellar reflex intensity grade: 2+ Extrem General: Yes normal to inspection and No edema Psych Appearance: grossly normal Affect: normal affect Attitude: cooperative Thought process: Normal thought process present Results AMB Hemoglobin A1c AMB Hemoglobin A1c 6.2 % Last Edit by MERNA Guajardo on 11/29/24 16:59 Coding Level of Care Code Est Pt Prev Care 40-64y(77528) Diagnoses Adult general medical exam Z00.00 Diabetes E11.9 Essential hypertension I10 Low HDL (under 40) E78.6 Elevated liver enzymes R74.8 Hyperlipidemia E78.5 Screening for prostate cancer Z12.5 Additional Codes HAIM-7 Assessment Billing - HAIM-7 Assessment Tool: HAIM-7 Assessment 32027 ([id number]) PHQ-9 - 14937 - PHQ-9 Billing: Yes ([id number]) Assessment & Plan Assessment & Plan (1) Adult general medical exam: Code(s): Z00.00 - Encounter for general adult medical examination without abnormal findings Category: Medical Plan: 44-year-old?male?presents?for?complete?physical?exam Encouraged?healthy?diet?with?active?lifestyle?and?plenty?of?exercise (2) Diabetes: Code(s): E11.9 - Type 2 diabetes mellitus without complications Category: Medical Plan: A1c?6.2%.??Good?control.??Goal?is?less?than?7.0% Continue?current?medication?regimen Encouraged?weight?loss (3) Essential hypertension: Code(s): I10 - Essential (primary) hypertension Category: Medical Plan: Blood?pressure?is?controlled.??Goal?is?less?than?140/90 Continue?current?medication (4) Low HDL (under 40): Code(s): E78.6 - Lipoprotein deficiency Category: Medical Plan: Hyperlipidemia?with?low?HDL. TC?and?LDL?are?controlled?with?atorvastatin. Patient?is?exercising?daily?and?still?has?rather?low?HDL.??Continue?exercise. Encouraged?weight?loss?and?exercise (5) Elevated liver enzymes: Code(s): R74.8 - Abnormal levels of other serum enzymes Category: Medical Plan: Mildly?elevated?ALT Encouraged?good?hydration?and?exercise?as?well?as?weight?loss. Will?recheck?prior?to?next?visit (6) Hyperlipidemia: Code(s): E78.5 - Hyperlipidemia, unspecified Category: Medical Plan: Continue?atorvastatin?as?above (7) Screening for prostate cancer: Code(s): Z12.5 - Encounter for screening for malignant neoplasm of prostate Category: Medical Plan: PSA?was?within?normal?limits Continue?annual?screening Orders: Orders AMB Hemoglobin A1c Today E11.9 - Type 2 diabetes mellitus without complications Medications: Refilled atorvastatin 40 mg PO BEDTIME 90 tabs 2RF 90 days
[2024-11-29 16:22] VITALS: BP 120/70; PULSE 79; RESP 14; TEMP 37.7; O2SAT 97; BMI 40.0
== END 2024-11-29 16:58 | disposition home or self-care (01) ==
LOC: HO.HMCFM 15:52
PROVIDERS: PCP Family Medicine; Visit Provider Family Medicine
DX: Z00.00 Encounter for general adult medical examination without abnormal findings (principal); E11.9 Type 2 diabetes mellitus without complications; I10 Essential (primary) hypertension; E78.6 Lipoprotein deficiency; R74.8 Abnormal levels of other serum enzymes; E78.5 Hyperlipidemia, unspecified; Z12.5 Encounter for screening for malignant neoplasm of prostate

== ENCOUNTER → 2024-11-29 15:51 | Outpatient (BNVA) | payer BC, SELFPAY | PROVIDERS: PCP Family Medicine; Visit Provider Family Medicine | DX: Z00.00 Encounter for general adult medical examination without abnormal findings (principal); E11.9 Type 2 diabetes mellitus without complications; I10 Essential (primary) hypertension; E78.6 Lipoprotein deficiency; R74.8 Abnormal levels of other serum enzymes; E78.5 Hyperlipidemia, unspecified; Z79.899 Other long term (current) drug therapy | CPT/HCPCS: 83036; 96127 ==